=== PATIENT | female | born 1975 | race African-American/Black ===

== ENCOUNTER 2017-07-11 09:43 | Emergency (ER) | payer BC, SELFPAY ==
[2017-07-11 10:59] LABS: Mean Platelet Volume 6.5 fL (7.4-10.4); Red Blood Cell (RBC) Count 4.36 mill/uL (4.20-5.40); White Blood Cell (WBC) Count 12.8 thou/uL (4.8-10.8)
[2017-07-11] MEDS ORDERED: Ondansetron HCl/PF 4 MG/2 ML Vial ONE (11:00)
[2017-07-11] MEDS ORDERED: Ketorolac Tromethamine 30 MG/ML VIAL ONE (11:00)
[2017-07-11] MEDS ORDERED: Acetaminophen 500 MG TAB ONE (11:00)
[2017-07-11 11:29] LABS: ALT (SGPT) 19 U/L (8-55); AST (SGOT) 19 U/L (5-34); Alkaline Phosphatase 73 U/L (40-150); Anion Gap 17 mmol/L (10-20); BUN (Urea Nitrogen) 7 mg/dL (7.0-18.7); Bilirubin, Total 0.6 mg/dL (0.2-1.2); Calc. Creatinine Clearance 0 mL/min (70-130); Carbon Dioxide 21 mmol/L (22-29); Chloride 103 mmol/L (98-107); Estimated GFR-MDRD Greater than 90; Globulin 4.7 g/dL (2.4-3.5); Protein, Total 9.4 g/dL (6.0-8.3)
[2017-07-11 11:40] LABS: #Basophils 0.1 thou/uL (0.0-0.2); #Monocytes 0.2 thou/uL (0.11-0.59); #Neutrophils 11.4 thou/uL (1.40-6.50); %Basophils 0.7 % (0.0-1.0); %Eosinophils 0.1 % (0.0-10.0); %Lymphocytes 8.1 % (21.0-51.0); %Monocytes 1.8 % (0.0-10.0); Macrocytosis SLIGHT = 6-15 cells (100X) (0-5/hpf)
--- NOTE | 2017-07-11 13:15 | CT ---
CT BRAIN WITHOUT CONTRAST: HISTORY: Headache. COMPARISON: None. FINDINGS: No acute territorial infarct or hemorrhage. No midline shift or mass effect. Ventricular size and e xtraaxial CSF spaces are normal. There is abnormal extensive thickening of the anterior ethmoid air cells on the right. The mastoids are clear. The calvarium is intact. IMPRESSION: Right ethmoid sinus disease. No acute intracranial abnormality. POS: [facility]
== END 2017-07-11 12:25 | disposition home or self-care (01) ==
LOC: ERS 09:43
DX: J32.9 Chronic sinusitis, unspecified (principal)
CPT/HCPCS: 36415; 70450; 80053; 84703; 85025; 96374; A4353; J1885; J2405

== ENCOUNTER 2017-11-05 08:12 | Emergency (ER) | payer SELFPAY ==
[2017-11-05] MEDS ORDERED: Lidocaine Viscous Sol 2% 15 ml UD Cup ONE (08:36)
[2017-11-05] MEDS ORDERED: Acetaminophen 325 MG TAB ONE (08:36)
--- NOTE | 2017-11-05 09:00 | RAD ---
CHEST PA AND LATERAL: HISTORY: A 42-year-old female with a history of cough. COMPARISON: 08/06/13. FINDINGS: Heart size is within normal limits. The lungs are clear. No pneumonia, edema, or pleural effusion. IMPRESSION: No acute intrathoracic disease. POS: [facility]
== END 2017-11-05 09:42 | disposition home or self-care (01) ==
LOC: ERS 08:12
DX: J30.2 Other seasonal allergic rhinitis (principal); R09.82 Postnasal drip
CPT/HCPCS: 71046

== ENCOUNTER 2018-03-29 08:36 | Emergency (ER) | payer OTHER, SELFPAY ==
[2018-03-29 08:59] LABS: Bilirubin Negative (Negative); Blood, Urine Negative (Negative); Clarity TURBID (Clear); Glucose, Urine (Dipstick) 100 mg/dL (Negative); Leukocyte Negative (Negative); Nitrite Negative (Negative); Protein, Urine (Dipstick) Negative (Neg-Trace); Specific Gravity, Urine 1.017 (1.002-1.036); Urobilinogen 0.2 mg/dL (0.2-1.0)
[2018-03-29 09:01] LABS: #Basophils 0.1 thou/uL (0.0-0.2); #Eosinphils 0.1 thou/uL (0.0-0.7); #Lymphocytes 2.2 thou/uL (1.20-3.40); #Monocytes 0.6 thou/uL (0.11-0.59); #Neutrophils 3.1 thou/uL (1.40-6.50); %Basophils 1.5 % (0.0-1.0); %Eosinophils 1.3 % (0.0-10.0); %Lymphocytes 36.4 % (21.0-51.0); %Monocytes 9.3 % (0.0-10.0); %Neutrophils 51.5 % (42.0-75.0); Mean Corpuscular HGB CONC 32.4 g/dL (32.0-36.0); Mean Corpuscular Hemoglobin 33.4 pg (27.0-31.0); Mean Platelet Volume 6.7 fL (7.4-10.4); Platelet Count 285 thou/uL (130-400); RBC Distribution Width 11.9 % (11.5-14.5); Red Blood Cell (RBC) Count 3.88 mill/uL (4.20-5.40); White Blood Cell (WBC) Count 6.1 thou/uL (4.8-10.8)
[2018-03-29 09:11] LABS: BHCG - Serum Negative (NEGATIVE); Pregs Control Background? CLEAR/WHITE (CLR/WHITE); Pregs Control Bar Appear? YES (CONTROL BAR)
[2018-03-29 09:21] LABS: Anion Gap 10 mmol/L (10-20); BUN (Urea Nitrogen) 9 mg/dL (7.0-18.7); Calc. Creatinine Clearance 0 mL/min (70-130); Calcium 8.9 mg/dL (7.8-10.44); Carbon Dioxide 27 mmol/L (22-29); Chloride 105 mmol/L (98-107); Estimated GFR-MDRD Greater than 90; Glucose 94 mg/dL (70-105); Potassium 3.9 mmol/L (3.5-5.1); Sodium 138 mmol/L (136-145)
--- NOTE | 2018-03-29 10:35 | RAD ---
RADIOGRAPH ABDOMEN ONE VIEW: 03/29/2018 9:16 a.m. HISTORY: A 42-year-old female with suprapubic abdominal pain for two days. Rule out constipation. COMPARISON: None. FINDINGS: Supine KUB: Normal bowel gas pattern. Small to moderate amount of stool in the colon. No evidence of organomegaly. IMPRESSION: Negative. POS: [facility]
[2018-03-29] MEDS ORDERED: Azithromycin 250 MG TAB ONE (11:09)
[2018-03-29] MEDS ORDERED: Lidocaine 2% PF 5 ML VIAL ONE (11:09)
[2018-03-29] MEDS ORDERED: metroNIDAZOLE 250 MG TAB ONE (11:09)
[2018-03-29] MEDS ORDERED: cefTRIAXone\\ROCEPHIN 250 MG VIAL ONE (11:09)
[2018-03-30 22:42] LABS: Chlamydia by PCR Not Detected (NotDetected); GC by PCR Not Detected (NotDetected)
== END 2018-03-29 12:14 | disposition home or self-care (01) ==
LOC: ERS 08:36
DX: N73.9 Female pelvic inflammatory disease, unspecified (principal); B37.3 Candidiasis of vulva and vagina
CPT/HCPCS: 36415; 74018; 80048; 81003; 84703; 85025; 87480; 87491; 87510; 87591; 87660; 96372; J0696; J2001